=== PATIENT | male | born 1990 | race Caucasian/White ===

== ENCOUNTER 2018-04-06 13:16 | Emergency (ER) | payer BC, OTHER ==
[~2018-04-06] VITALS: Ht 182.9 cm; Wt 101.0 kg
[~2018-04-06 13:16] MED LIST: TRAM-10 PO
[2018-04-06 13:22] VITALS: BP 124/73; PULSE 81; TEMP 36.7; O2SAT 98; Ht 182.9 cm; Wt 101.0 kg
[2018-04-06] MEDS ORDERED: LIDOCAINE 1% BUFFERED INJ 5 ML VIAL INFIL ONE (13:45)
--- NOTE | 2018-04-06 13:45 | EMERGENCY ROOM VISIT NOTE ---
History First contact with patient: 13:27 Chief Complaint: LACERATION/CUT (SUT/DERMABOND) Stated Complaint: FINGER LACERATION-WC History of Present Illness The patient is a 27 year old male who presents to the Emergency Room with complaints of a laceration to his right fourth finger. The patient reports that he was at work and sliced the finger on an air conditioner. He reports the injury occurred just prior to arrival. They attempted to bandage the wound at work but were unable to stop the bleeding. He rates his discomfort a 1/10 and states it is a stinging pain. He has not attempted to move the finger because he is afraid it will start bleeding again. He denies any numbness or weakness. His tetanus is up-to-date. Review of Systems A complete 6 point review of systems was reviewed with the patient with pertinent positives and negatives as per history of present illness. All else were negative. Past Medical/Surgical History Medical Problems: (1) No significant active problems Social History Smoking Status: Never Smoker Alcohol Use: occasionally Marital Status: in relationship Housing Status: lives with significant other Occupation Status: employed Current/Historical Medications Scheduled Cephalexin Monohydrate (Keflex), 500 MG PO QID Physical Exam Vital Signs Date Time Temp Pulse Resp B/P (MAP) Pulse Ox O2 Delivery O2 Flow Rate FiO2 04/06/18 13:22 36.7 81 20 124/73 98 Room Air Physical Exam VITALS: Vitals are noted on the nurse's note and reviewed by myself. Vital signs stable. GENERAL: This is a 27-year-old male, in no acute distress, nondiaphoretic, well- developed well-nourished. SKIN: There is a 3 cm laceration to the dorsal aspect of the right fourth finger , overlying the PIP. There is no active bleeding. There are no foreign body seen in the base of the wound. MUSCULOSKELETAL: Full range of motion of the right fourth finger. Strength 5/5 against resistance. NEURO: Patient was alert and oriented to person place and time. Normal sensation to the distal right fourth finger. Medical Decision & Procedures Procedure Verbal consent was obtained to perform the procedure. Using sterile technique the wound was cleaned with Betadine. The area was sterilely draped. 3 ml of 1 % buffered lidocaine was used to anesthetize the laceration. Once the patient was anesthetized, the wound was copiously irrigated under pressure with sterile saline. The wound was explored and there were no deep structures injured such as tendons, bone, or significant blood vessels. The laceration was repaired using 5 simple interrupted 4-0 nylon sutures with the wound edges being well approximated. The patient tolerated the procedure well. Hemostasis was achieved. The area was cleaned with sterile saline and dressed with bacitracin ointment and bandage. Medical Decision Differential diagnosis includes laceration, fracture, dislocation, contusion, among others. The patient was evaluated as above. He sustained a laceration to the right ring finger. There was no evidence of tendon injury and patient had full range of motion and strength on exam. Laceration was repaired as noted above. Patient was placed on Keflex to prevent any infection as his wound was quite dirty. He was given information for orthopedic follow-up in case he has any difficulty moving the finger or problems in the upcoming days. Suture care instructions were discussed with the patient. He was placed in a metal finger splint. He verbalized understanding of my assessment and treatment plan and was discharged home in good condition. Medication Reconcilliation Current Medication List: was personally reviewed by ga Blood Pressure Screening Patient's blood pressure: Normal blood pressure Impression Primary Impression: Laceration of finger Departure Information Dispostion Home / Self-Care Condition GOOD Prescriptions Cephalexin Monohydrate (Keflex) 500 Mg Cap 500 MG PO QID for 7 Days, #28 CAP Prov: Ana Rosa Collins ., HELGA 04/06/18 Referrals No Doctor, Assigned (PCP) Praveen Mortensen MD Patient Instructions [facility] Additional Instructions You have received 5 sutures on your finger. These sutures are NOT dissolvable and WILL need to be removed by a health care provider in 12-14 days. You can return to the Emergency Department or contact your Primary Care Provider to have the sutures removed. Keflex as prescribed. This is an antibiotic to prevent infection from developing. Keep the splint in place for the next 3-4 days, then as needed for pain/when working. Proper wound care is essential for adequate wound healing and infection prevention. You can shower and clean the wound with soap and water. Do not scour over the wound, pat dry with a towel. Do not submerse the wound (i.e. bathe or dish wash) until the sutures have been removed. You can use an antibiotic ointment with a dressing over the wound for the next 3-4 days. After this time you may leave the wound dry and open to the air. If crust develops over the wound you can use a Q-tip to apply a 1:1 peroxide:water solution to clean the wound. Look for signs of infection of the wound including: increased pain, swelling, foul discharge, streaking, or increased temperature. If any of these are noticed you should return to the Emergency Department for further assessment and treatment. As with any laceration you may have received nerve damage to the surrounding tissues. This damage may or may not be permanent. You should keep the area covered with sunscreen for the first 6 months to 1 year when at risk for exposure to help minimize scarring. You can also use scar reducing creams or Vitamin E oil to help minimize scarring. For pain control, you can use the following [id number] medicines (if >12 yo): - Regular strength (325mg/tab) Tylenol (acetaminophen) 2 tabs every 4-6 hours as needed. Do not exceed 12 tablets in a 24 hour period. Avoid taking more than 4 grams (4000 mg) of Tylenol per day. This includes any other sources of acetaminophen you may take on a regular basis. - Regular strength (200 mg/tab) Advil (ibuprofen) 1-2 tabs every 4-6 hours as needed. Do not exceed a dose of 3200 mg per day. Follow-up with Dr. Mortensen of orthopedics if you have any difficulty moving the finger or numbness in the finger. Return to the emergency department if your symptoms worsen despite treatment course outlined above. Problem Qualifiers Primary Impression: Laceration of finger Encounter type: initial encounter Finger: ring finger Damage to nail status : without damage Foreign body presence: with foreign body Laterality: right Qualified Codes: S61.224A - Laceration with foreign body of right ring finger without damage to nail, initial encounter
[2018-04-06] MEDS ORDERED: CEPH500C PO (15:41)
== END 2018-04-06 15:50 | disposition home or self-care (01) ==
LOC: C.EDB 13:18 → C.EDD 15:50
DX: S61.214A Laceration without foreign body of right ring finger without damage to nail, initial encounter (principal); W45.8XXA Other foreign body or object entering through skin, initial encounter